=== PATIENT | female | born 1960 | race African-American/Black ===

== ENCOUNTER → 2019-01-21 | Outpatient (CLI) | payer BC ==
[2014-05-13 14:05] VITALS: BP 157/104
[~2019-01-21] MED LIST: LISI1TAB3 PO
--- NOTE | 2019-01-21 10:57 | RAD ---
DATE: 01/21/2019 EXAM: MAMMO SHEILA SCREENING BILATERAL HISTORY: Routine screening COMPARISON: 12/16/2014 This study was interpreted with the benefit of Computerized Aided Detection (CAD). Breast Density: SCATTERED The breast parenchyma shows scattered fibroglandular densities. Breast parenchyma level B. FINDINGS: 2-D and 3-D tomosynthesis imaging was performed in CC and MLO projections. The fibroglandular tissues are heterogeneous and somewhat nodular in character. No spiculated mass or architectural distortion is seen. There are scattered benign type calcifications. No suspicious microcalcifications have developed. IMPRESSION: There is no mammographic evidence of malignancy in either breast. BI-RADS CATEGORY: 2 BENIGN FINDING(S) RECOMMENDED FOLLOW-UP: 12M 12 MONTH FOLLOW-UP PQRS compliance statement: Patient information was entered into a reminder system with a target due date for the next mammogram. Mammography is a sensitive method for finding small breast cancers, but it does not detect them all and is not a substitute for careful clinical examination. A negative mammogram does not negate a clinically suspicious finding and should not result in delay in biopsying a clinically suspicious abnormality. "Our facility is accredited by the [employer] Mammography Program."
== END | disposition home or self-care (01) ==
LOC: MAMMO 09:51
PROVIDERS: ATTEND Internal Medicine
DX: Z12.31 Encounter for screening mammogram for malignant neoplasm of breast (principal)
CPT/HCPCS: 77063; 77067

== ENCOUNTER → 2019-10-28 | Outpatient (CLI) | payer BC ==
[2014-05-13 14:05] VITALS: BP 157/104
[~2019-10-28] MED LIST changes: +LISI1TAB23 PO; -LISI1TAB3 PO
--- NOTE | 2019-10-28 15:05 | RAD ---
EXAM: Bilateral knees, 3 views. HISTORY: Pain. COMPARISON: None. FINDINGS: 3 views of both knees are obtained. There is bilateral medial compartment joint space narrowing with subchondral sclerosis and marginal spurring. There is also mild bilateral lateral and patellofemoral compartment spurring. There is a trace left knee effusion. There is no fracture, dislocation or subluxation. There are few small bone islands. There is suspected left greater than right genu varus. IMPRESSION: 1. 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 2. No acute osseous finding. Electronically signed by: Zully Dickinson MD (10/28/2019 3:02 PM) [facility] [place]
--- NOTE | 2019-10-28 15:05 | RAD ---
EXAM: Bilateral knees, 3 views. HISTORY: Pain. COMPARISON: None. FINDINGS: 3 views of both knees are obtained. There is bilateral medial compartment joint space narrowing with subchondral sclerosis and marginal spurring. There is also mild bilateral lateral and patellofemoral compartment spurring. There is a trace left knee effusion. There is no fracture, dislocation or subluxation. There are few small bone islands. There is suspected left greater than right genu varus. IMPRESSION: 1. 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 2. No acute osseous finding. Electronically signed by: Zully Dickinson MD (10/28/2019 3:02 PM) [facility] [place]
== END | disposition home or self-care (01) ==
LOC: RAD 13:57
PROVIDERS: ATTEND Physical Medicine & Rehabilitation
DX: M17.0 Bilateral primary osteoarthritis of knee (principal)
CPT/HCPCS: 73562; 73565

== ENCOUNTER → 2021-03-13 | Outpatient (CLI) | payer BC ==
[2014-05-13 14:05] VITALS: BP 157/104
[2021-03-13 14:18] LABS: BASO % 1 % (0-3); EOS # 0.2 x10^3/uL (0.0-0.7); EOS % 4 % (0-3); HEMATOCRIT 38.9 % (36.0-47.0); HEMOGLOBIN 13.1 g/dL (12.0-15.5); LYMPH # 1.6 x10^3/uL (1.0-4.8); LYMPH % 34 % (24-48); MEAN CORPUSCULAR HEMOGLOBIN 30 pg (25-35); MEAN CORPUSCULAR HGB CONC 34 g/dL (31-37); MEAN CORPUSCULAR VOLUME 88 fL (79-100); MONO # 0.4 x10^3/uL (0.0-1.1); MONO % 9 % (0-9); NEUT # 2.6 x10^3/uL (1.8-7.7); NEUT % 53 % (31-73); PLATELET COUNT 237 x10^3/uL (140-400); RED CELL DISTRIBUTION WIDTH 14.1 % (11.5-14.5); WHITE BLOOD COUNT 4.8 x10^3/uL (4.0-11.0)
[2021-03-13 14:33] LABS: CALCIUM 9.8 mg/dL (8.5-10.1); CREATININE 1.3 mg/dL (0.6-1.0); GFR 50.2; POTASSIUM 3.9 mmol/L (3.5-5.1)
--- NOTE | 2021-03-13 17:50 | RAD ---
EXAM: Left second finger, 3 views. HISTORY: Left second proximal interphalangeal pain. COMPARISON: None. FINDINGS: There is marked soft tissue swelling about the second proximal interphalangeal joint. There are prominent osteophytes along the dorsal aspect of the second proximal phalangeal head. They are s mall elsewhere. No clear erosion or soft tissue calcification is seen. Elsewhere, a prominent osteophyte along the ulnar aspect of the third proximal interphalangeal joint may reflect a chronic ligamentous injury. Interphalangeal osteoarthritis is moderate at the first int erphalangeal joint and mild elsewhere. It is mild at the second, third and fifth metacarpophalangeal joints. IMPRESSION: 1. Soft tissue swelling superimposed on mild to moderate second proximal interphalangeal osteoarthrit is. Correlate to exclude infection or crystalline arthropathy. Electronically signed by: Yennifer Cedeño MD (03/13/2021 5:47 PM) [id number]
== END ==
LOC: RAD 13:39
PROVIDERS: ATTEND Physical Medicine & Rehabilitation
DX: M19.042 Primary osteoarthritis, left hand (principal); M77.8 Other enthesopathies, not elsewhere classified; M25.742 Osteophyte, left hand; M79.89 Other specified soft tissue disorders
CPT/HCPCS: 36415; 73140; 80048; 85025

== ENCOUNTER 2021-04-08 21:25 | Emergency (ER) | payer SELFPAY ==
[~2021-04-08] VITALS: Ht 167.6 cm; Wt 110.3 kg
--- NOTE | 2021-04-08 22:40 | PHYS DOC ---
Past Medical History Past Surgical History: No Surgical History General Adult EDM: Chief Complaint: MULTIPLE COMPLAINTS HPI: HPI: 60-year-old AA female past medical history of hypertension, presents to the ED with complaints of weakness for the past 2 days, subjective fevers, headache and multiple episodes of loose watery diarrhea. Sxs worsened after anglican this morning, does not believe she has been exposed to Covid. Was not vaccinated for Covid. Lives with daughter and younger children. Review of Systems: Review of Systems: Constitutional: Denies lack of taste or smell Eyes: Denies change in visual acuity. [] HENT: Denies nasal congestion or sore throat. [] Respiratory: Denies mopped assist or shortness of breath. [] Cardiovascular: Denies chest pain or edema. [] GI: Denies abdominal pain, nausea, vomiting, : Denies dysuria, hematuria Musculoskeletal: Denies back pain or joint pain. [] Integument: Denies rash or diaphoresis Neurologic: Denies neck stiffness, focal weakness or sensory changes. [] Endocrine: Denies polyuria or polydipsia. [] Lymphatic: Denies swollen glands. [] Psychiatric: Denies depression or anxiety. [] Heart Score: C/O Chest Pain: No Risk Factors: Risk Factors: DM, Current or recent (<one month) smoker, HTN, HLP, family history of CAD, obesity. Risk Scores: Score 0 - 3: 2.5% MACE over next 6 weeks - Discharge Home Score 4 - 6: 20.3% MACE over next 6 weeks - Admit for Clinical Observation Score 7 - 10: 72.7% MACE over next 6 weeks - Early Invasive Strategies Current Medications: Current Medications Medications (Trade) Dose Ordered Sig/Letitia Start Time Stop Time Status Last Admin Dose Admin Sodium Chloride 1,000 ml @ 1,000 mls/hr 1X ONCE 04/08/21 23:00 04/08/21 23:59 Allergies: Allergies: Allergies Coded Allergies Type Severity Reaction Last Updated Verified No Known Drug Allergies 05/13/14 No Physical Exam: PE: Constitutional: Well developed, well nourished, no acute distress, non-toxic appearance. HENT: Normocephalic, atraumatic, Eyes: EOMI, conjunctiva normal, no discharge. Neck: Normal range of motion, supple, Cardiovascular: S1/2 present, regular rhythm Lungs & Thorax: Speaking in full sentences, bilateral equal chest rise, no tachypnea or increased work of breathing Abdomen: soft, no tenderness, Skin: Warm, dry, no erythema, no rash. [] Back: No tenderness, no CVA tenderness. [] Extremities: No tenderness, no cyanosis, no lower extremity edema Neurologic: Alert and oriented X 3, normal motor function, normal sensory function, no focal deficits noted. [] Psychologic: Affect normal, judgement normal, mood normal. [] Current Patient Data: Vital Signs: Vital Signs Date Time Temp Pulse Resp B/P (MAP) Pulse Ox O2 Delivery O2 Flow Rate FiO2 04/08/21 21:35 98.7 118 18 106/83 (121) 96 Room Air 98.7 EKG: EKG: Sinus tachycardia 110 bpm, left axis deviation, normal intervals, T wave inversion in aVF, no ST elevations, no active chest pain 2353 sinus arrhtymia 100 pm, LAD, QTC 457, TWI V2, no ST elevations or ST depressions, no active chest pain Radiology/Procedures: Radiology/Procedures: IMAGING REPORT Signed PATIENT: GIOVANI DAVIS ACCOUNT: [id number] : 1960 LOCATION: ER AGE: 60 SEX: F EXAM STATUS: REG ER ORD. PHYSICIAN: FAIZAN DEXTER DO REASON: soa PROCEDURE: PORTABLE CHEST 1V PROCEDURE: XR CHEST 1V.04/08/2021 11:24 PM REASON FOR STUDY: Reason: soa / Spl. Instructions: / History: . COMPARISON: None. FINDINGS: No consolidation or pleural fluid is seen. There is mild haziness at the right base, and early infiltrate could be developing. Heart size is normal. IMPRESSION: Possible early right basilar infiltrate. Electronically signed by: Traa Marrero Jr., MD (04/08/2021 11:25 PM) [facility] DICTATED and SIGNED BY: TARA MARRERO Jr, MD DATE: 04/08/21 [id number] Course & Med Decision Making: Course & Med Decision Making Pertinent Labs and Imaging studies reviewed. (See chart for details) COVID-19 CRITERIA: The patient was evaluated during the global COVID-19 pandemic, and that diagnosis was suspected/considered upon their initial presentation. Their evaluation, treatment and testing was consistent with current guidelines for patients who present with complaints or symptoms that may be related to COVID-19. Concern for right sided pneumonia, rapid covid test negative. Symptoms more consistent with viral illness but will cover for bacterial and tx w/abx. Pt well appearing, in full sentences, requires no supplemental oxygen with no tachypnea. Pt is happy to be discharged home. Will discharge home with strict ED return precautions were given for difficulties or increased work of breathing, chest pain, fever, syncope or neurologic deficits. Encouraged urgent outpatient follow-up with PMD and [specialist]. Life-threatening processes were considered but are low suspicion at this time, given history, physical exam and ED workup. Pt was educated on all prescription medications and adverse effects. All patient's questions were answered and pt was stable at time of discharge. Life/limb-threatening differential includes but is not limited to, airway emergency or respiratory distress/ARDS or fatigue or head or neck swelling, toxidrome, sepsis/shock, angioedema, anaphylaxis, congestive heart failure, myocarditis, acute myocardial infarction, dysrhythmias, cardiomyopathy, venous thromboembolism, pulmonary emboli, acute necrotizing hemorrhagic encephalopathy ,cerebral venous thrombosis, meningitis, encephalitis or CVA. I have spoken with the patient and/or caregivers. I explained the patient's condition, diagnoses and treatment plan based on the information available to me at this time. I have answered the patient and/or caregiver's questions and addressed any concerns. The patient and/or caregivers have a good understanding of patient's diagnosis, condition and treatment plan as can be expected at this point. Vital signs have been stable. Patient's condition is stable and appropriate for discharge from the emergency department. Patient will pursue further outpatient evaluation with primary care physician or other designated or consulting physician as outlined in the discharge instructions. The patient and/or caregivers are agreeable to this plan of care and follow-up instructions have been explained in detail. The patient and/or caregivers have received these instructions in written form and have expressed an understanding of the discharge instructions. The patient and/or caregivers are aware that any significant change of condition or worsening of symptoms should prompt immediate return to this or the closest emergency department or call to 911. Marcos Disclaimer: Marcos Disclaimer: This electronic medical record was generated, in whole or in part, using a voice recognition dictation system. Departure Departure Impression: Primary Impression: Person under investigation for COVID-19 Additional Impression: Pneumonia involving right lung Disposition: HOME / SELF CARE / HOMELESS Condition: STABLE Referrals: LISA ANDERSEN MD (PCP) Follow-up with your primary care physician in 24 to 48 hours OR FOLLOW UP WITH FAMILY MEDICINE: [address] [place] [address] Patient Instructions: Pneumonia, Adult Additional Instructions: Return to ED immediately if your oxygen level drops below 90% (purchase a pulse oximetry at a medical supply store), difficulties breathing including rapid breathing or increased work of breathing (skin sucking under ribs), chest pain or stroke-like symptoms (facial droop, speech changes, arm/leg weakness). EMERGENCY DEPARTMENT GENERAL DISCHARGE INSTRUCTIONS Thank you for coming to [facility] Emergency Department (ED) today and trusting us with you care. We trust that you had a positive experience in our Emergency Department. If you wish to speak to the department management, you may call the Director at [phone]. YOUR FOLLOW UP INSTRUCTIONS ARE FOLLOWS: 1. Do you have a private Doctor? If you do not have a private doctor, please ask for a resource list of physicians or clinics that may be able to assist you with follow up care. 2. The Emergency Physicain has interpreted your x-rays. The X-Ray specialist will also review them. If there is a change in the findings, you will be notified in 48 hours when at all possible. 3. A lab test or culture has been done, your results will be reviewed and you will be notified if you need a change in treatment. ADDITIONAL INSTRUCTIONS AND INFORMATION: 1. Your care today has been supervised by a physician who is specially trained in emergency care. Many problems require more than one evaluation for a complete diagnosis and treatment. We recommend that you schedule your follow up appointment as recommended to ensure complete treatment of you illness or injury. If you are unable to obtain follow up care and continue to have a problem, or if your condition worsens, we recommend that you return to the ED. 2. We are not able to safely determine your condition over the phone nor are we able to give sound medical advice over the phone. For these safety reasons, if you call for medical advice we will ask you to come to the ED for further evaluation. 3. If you have any questions regarding these discharge instructions please call the ED at [phone]. SAFETY INFORMATION: In the interest of safety, wellness, and injury prevention; we encourage you to wear your sealbelt, if you smoke; quite smoking, and we encourage family to use a protective helmet for bicycling and other sporting events that present an increased risk for head injury. IF YOUR SYMPTOMS WORSEN OR NEW SYMPTOMS DEVELOP, OR YOU HAVE CONCERNS ABOUT YOUR CONDITION; OR IF YOUR CONDITION WORSENS WHILE YOU ARE WAITING FOR YOUR FOLLOW UP APPOINTMEN T; EITHER CONTACT YOUR PRIMARY CARE DOCTOR, THE PHYSICIAN WHOSE NAME AND NUMBER YOU WERE GIVEN, OR RETURN TO THE ED IMMEDIATELY. Scripts Azithromycin (ZITHROMAX) 250 Mg Tablet 250 MG PO as directed for ANTI-BIOTIC, #6 TAB 0 Refills Take 2 PO x 1 days Then take 1 PO q 24 hour for the next 4 days Prov: FAIZAN DEXTER DO 04/09/21 FAIZAN DEXTER DO Apr 08, 2021 22:40
[2021-04-08 22:48] LABS: BASO % 0 % (0-3); EOS # 0.1 x10^3/uL (0.0-0.7); EOS % 1 % (0-3); HEMATOCRIT 42.8 % (36.0-47.0); HEMOGLOBIN 14.7 g/dL (12.0-15.5); LYMPH # 0.8 x10^3/uL (1.0-4.8); LYMPH % 13 % (24-48); MEAN CORPUSCULAR HEMOGLOBIN 30 pg (25-35); MEAN CORPUSCULAR HGB CONC 34 g/dL (31-37); MEAN CORPUSCULAR VOLUME 88 fL (79-100); MONO # 0.5 x10^3/uL (0.0-1.1); MONO % 9 % (0-9); NEUT # 4.5 x10^3/uL (1.8-7.7); NEUT % 76 % (31-73); PLATELET COUNT 206 x10^3/uL (140-400); RED BLOOD COUNT 4.86 x10^6/uL (3.50-5.40); RED CELL DISTRIBUTION WIDTH 14.3 % (11.5-14.5); WHITE BLOOD COUNT 5.9 x10^3/uL (4.0-11.0)
[2021-04-08] MEDS ORDERED: IV NORMAL SALINE 1000ML BAG 1,000 ML IV ONE (23:00)
[2021-04-08 23:28] LABS: CALCIUM 9.4 mg/dL (8.5-10.1); CREATININE 1.6 mg/dL (0.6-1.0); GFR 39.5; POTASSIUM 3.4 mmol/L (3.5-5.1)
--- NOTE | 2021-04-08 23:28 | RAD ---
PROCEDURE: XR CHEST 1V.04/08/2021 11:24 PM REASON FOR STUDY: Reason: soa / Spl. Instructions: / History: . COMPARISON: None. FINDINGS: No consolidation or pleural fluid is seen. There is mild haziness at the right base, and ea rly infiltrate could be developing. Heart size is normal. IMPRESSION: Possible early right basilar infiltrate. Electronically signed by: Fady Marrero Jr., MD (04/08/2021 11:25 PM) [facility]
[2021-04-08 23:34] LABS: ALBUMIN 3.2 g/dL (3.4-5.0); ALBUMIN/GLOBULIN RATIO 0.7 (1.0-1.7); TOTAL BILIRUBIN 0.3 mg/dL (0.2-1.0); TOTAL PROTEIN 8.1 g/dL (6.4-8.2)
[2021-04-09] MEDS ORDERED: AZIT250T PO (00:41)
[2021-04-09 01:02] VITALS: BP 166/91
--- NOTE | 2021-04-09 01:12 | EKG ---
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
--- NOTE | 2021-04-09 01:14 | EKG ---
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
--- NOTE | 2021-04-09 16:55 | NUR ---
IP: Informed pt of negative covid test. Pt verbalized understanding.
== END 2021-04-09 01:09 | disposition home or self-care (01) ==
LOC: ER 21:25
DX: J18.9 Pneumonia, unspecified organism (principal); Z20.822 Contact with and (suspected) exposure to COVID-19; R51.9 Headache, unspecified; R19.7 Diarrhea, unspecified; I10 Essential (primary) hypertension
CPT/HCPCS: 36415; 71045; 80053; 83605; 83735; 83880; 84484; 85025; 87040; 87426; 93005; 96360; 99285; J7030; U0003; U0005

== ENCOUNTER → 2021-12-25 | Outpatient (CLI) | payer BC ==
[~2021-12-25] MED LIST changes: +AZIT250T PO; -LISI1TAB23 PO; +LISI1TAB35 PO
--- NOTE | 2021-12-25 16:21 | RAD ---
Bilateral digital screening 2-D and 3-D (digital breast tomosynthesis) mammogram: Reason for examination: Routine screening. Comparison: Mammograms from 01/21/2019 and 02/15/2015. Interpretation was made with the benefit of CAD. FINDINGS: Breast density: Category B. There are scattered areas of fibroglandular density. No suspicious breast mass, malignant appearing calcifications, or architectural distortion is seen. IMPRESSION: No evidence of malignancy. Assessment: BI-RADS 1. Negative. Recommendation: Routine screening mammograms. The patient will receive a letter with the results in the mail. Patient information will be entered i nto the mammography reminder system with a target recall date for the next mammogram. A reminder boone er will be generated. Electronically signed by: Delaney Washburn MD (12/25/2021 4:19 PM) [id number]
== END ==
LOC: MAMMO 09:02
PROVIDERS: ATTEND Internal Medicine
DX: Z12.31 Encounter for screening mammogram for malignant neoplasm of breast (principal)
CPT/HCPCS: 77063; 77067

== ENCOUNTER 2022-01-18 22:27 | Inpatient (IN) | payer BC ==
[~2022-01-18] VITALS: Ht 167.6 cm; Wt 112.0 kg
[2022-01-19] MEDS ORDERED: DEXAMETHASONE SOD PHOS 20 MG/5 ML VIAL. IV ONE
--- NOTE | 2022-01-19 00:04 | PHYS DOC ---
Past Medical History Past Surgical History: No Surgical History Smoking Status: Never Smoker Alcohol Use: None General Adult EDM: Chief Complaint: FOOT INJURY PAIN HPI: HPI: Patient is a 61 year old female who presents with callback from [place] where she was there she had a lot of seafood and then began having left ankle and foot swelling and pain with some tenderness to the top of the foot. She denies injury. She states she does have gout. She is not on her medication before. She also has arthritis and hypertension as a history. She states she was on her feet more than usual. Rates her pain a 10 out of 10. She states that her doctor gave her a 600 mg ibuprofen and it did not really help the pain. She states she does not want any narcotic pain medication. She is scheduled to have an upcoming left knee replacement this week. She denies numbness or tingling, skin color change, focal weakness, injury. Review of Systems: Review of Systems: Constitutional: Denies fever or chills. [] Eyes: Denies change in visual acuity. [] HENT: Denies nasal congestion or sore throat. [] Respiratory: Denies cough or shortness of breath. [] Cardiovascular: Denies chest pain or +Left foot and ankle edema. [] GI: Denies abdominal pain, nausea, vomiting, bloody stools or diarrhea. [] : Denies dysuria. [] Musculoskeletal: Denies back pain or +Left foot and ankle joint pain. [] Integument: Denies rash. [] Neurologic: Denies headache, focal weakness or sensory changes. [] Endocrine: Denies polyuria or polydipsia. [] Lymphatic: Denies swollen glands. [] Psychiatric: Denies depression or anxiety. [] Heart Score: C/O Chest Pain: No Current Medications: Current Medications Medications (Trade) Dose Ordered Sig/Letitia Start Time Stop Time Status Last Admin Dose Admin Dexamethasone Sodium Phosphate (Decadron) 10 mg 1X ONCE 01/19/22 00:00 01/19/22 00:01 Allergies: Allergies: Allergies Coded Allergies Type Severity Reaction Last Updated Verified No Known Drug Allergies 05/13/14 No Physical Exam: PE: Constitutional: Well developed, well nourished, no acute distress, non-toxic appearance. [] HENT: Normocephalic, atraumatic, bilateral external ears normal, oropharynx moist, no oral exudates, nose normal. [] Eyes: PERRLA, EOMI, conjunctiva normal, no discharge. [] Neck: Normal range of motion, no tenderness, supple, no stridor. [] Cardiovascular:Heart rate regular rhythm, no murmur [] Lungs & Thorax: Bilateral breath sounds clear to auscultation [] Abdomen: Bowel sounds normal, soft, no tenderness, no masses, no pulsatile masses. [] Skin: Warm, dry, no erythema, no rash. [] Back: No tenderness, no CVA tenderness. [] Extremities: Left dorsal foot tenderness, no cyanosis, no clubbing, left ankle ROM not intact, left foot and ankle 2+ edema. [] Neurologic: Alert and oriented X 3, normal motor function, normal sensory function, no focal deficits noted. [] Psychologic: Affect normal, judgement normal, mood normal. [] EKG: EKG: [] Radiology/Procedures: Radiology/Procedures: [] Course & Med Decision Making: Course & Med Decision Making Pertinent Labs and Imaging studies reviewed. (See chart for details) See HPI. Alert and oriented x4. Ambulatory but limping on the left foot. She states she cannot bear weight on that left foot and is very hard to walk. Range of motion is not intact due to swelling and pain. Speaks in full clear sentences. Slight tenderness to the dorsal foot. Pedal pulse strong present. Cap refill less than 2 seconds. Skin pink warm and dry. 0135: Patient's kidney function is elevated compared to in the past. We will give her 2 L of fluid in the ED. She is unable to walk on the left lower extremity due to pain and swelling. Her uric acid is 10.5. Dr. Berry did read the x-rays as no obvious acute findings but however gout and swelling. Dr. Berry to watch for ultrasound results. [] Dragon Disclaimer: Dragon Disclaimer: This electronic medical record was generated, in whole or in part, using a voice recognition dictation system. Departure Departure Impression: Primary Impression: SHEREEN (acute kidney injury) Additional Impressions: Gout attack Qualified Codes: M10.9 - Gout, unspecified Unable to ambulate Disposition: ADMITTED INPATIENT Admitting Physician: [facility] Condition: STABLE Referrals: LISA ANDERSEN MD (PCP) DOMENICO AQUINO APRN Jan 19, 2022 00:04
[2022-01-19 00:40] LABS: BASO % 1 % (0-3); EOS # 0.2 x10^3/uL (0.0-0.7); EOS % 4 % (0-3); HEMATOCRIT 38.1 % (36.0-47.0); HEMOGLOBIN 13.1 g/dL (12.0-15.5); LYMPH # 1.9 x10^3/uL (1.0-4.8); LYMPH % 26 % (24-48); MEAN CORPUSCULAR HEMOGLOBIN 30 pg (25-35); MEAN CORPUSCULAR HGB CONC 34 g/dL (31-37); MEAN CORPUSCULAR VOLUME 88 fL (79-100); MONO # 0.7 x10^3/uL (0.0-1.1); MONO % 10 % (0-9); NEUT # 4.3 x10^3/uL (1.8-7.7); NEUT % 60 % (31-73); PLATELET COUNT 204 x10^3/uL (140-400); RED BLOOD COUNT 4.33 x10^6/uL (3.50-5.40); RED CELL DISTRIBUTION WIDTH 14.1 % (11.5-14.5); WHITE BLOOD COUNT 7.2 x10^3/uL (4.0-11.0)
[2022-01-19 00:54] LABS: ALBUMIN 3.4 g/dL (3.4-5.0); ALBUMIN/GLOBULIN RATIO 0.7 (1.0-1.7); TOTAL PROTEIN 8.5 g/dL (6.4-8.2)
[2022-01-19 00:55] LABS: CALCIUM 9.9 mg/dL (8.5-10.1); GFR 30.4; POTASSIUM 3.2 mmol/L (3.5-5.1); TOTAL BILIRUBIN 0.2 mg/dL (0.2-1.0); URIC ACID 10.2 mg/dL (2.6-6.0)
[2022-01-19] MEDS ORDERED: IV NORMAL SALINE 1000ML BAG 1,000 ML IV ONE ×2 (01:15→01:45)
[2022-01-19 02:18] LABS: BACTERIA,URINE FEW /HPF (0-FEW); HYALINE CASTS, URINE OCCASIONAL /HPF; RBC,URINE 0 /HPF (0-2); WBC,URINE OCC /HPF (0-4)
--- NOTE | 2022-01-19 05:07 | RAD ---
STUDY: US DPLX VENOUS EXTREMITY LOWER LT INDICATION: Lower extremity pain and swelling. DVT. TECHNIQUE: Color-flow and pulsed wave duplex ultrasound with compression of venous structures of the left lower extremity. COMPARISON: None. FINDINGS: Duplex ultrasound with compression of the deep venous structures of the left lower extremity from the common femoral vein through the popliteal vein is negative for DVT. The posterior tibial and peroneal veins are segmentally visualized and patent where seen. Normal veno us waveforms and augmentation are noted throughout. IMPRESSION: No deep venous thrombosis identified throughout the left lower extremity. Electronically signed by: NICKY ALMAZAN MD (01/19/2022 5:04 AM) [facility]
--- NOTE | 2022-01-19 05:11 | RAD ---
Study: 1. XR EXAM OF ANKLE_LEFT 3V 2. XR FOOT_LEFT 3 VIEWS Indication: Pain and swelling. Comparison: None. Findings: Left ankle: Edematous soft tissues around the ankle. Chronic osseous proliferation at the tip of the medial malle olus. No acute malleolar fracture. Mild degenerative spurring along the tibial plafond. Ankle joint s pace height is maintained. Symmetric ankle mortise. Left foot: Plantar calcaneal spur. Osteophytic ridging at the dorsum of the midfoot. Minimal great toe MTP joint arthrosis and a tiny chronic focus of mineralization adjacent to the first metatarsal head. No acute fracture, focal erosion or periostitis. Nonspecific edematous appearance of the soft tissues mainly at the dorsum of the foot. Impression: Left ankle and left foot: 1. Nonspecific edematous soft tissues such as at the ankle and dorsum of the foot. No fracture or mal alignment. 2. Scattered chronic/degenerative findings as discussed above. Electronically signed by: NICKY ALMAZAN MD (01/19/2022 5:09 AM) [facility]
[2022-01-19 07:00] VITALS: BP 140/69
[2022-01-19] MEDS ORDERED: HYDR-2761 PO (08:30)
[2022-01-19] MEDS ORDERED: TRIA1TAB5 PO (08:30)
[2022-01-19] MEDS ORDERED: AMLO-186 PO (08:30)
--- NOTE | 2022-01-19 08:44 | PDOC ---
Provider Note Date of Service: DATE: 01/19/22 TIME: 08:44 Provider Note Pt seen.H&P dictated,#[id number]. Justifications for Admission Other Justification LISA ANDERSEN MD Jan 19, 2022 08:44
[2022-01-19] MEDS ORDERED: predniSONE 20 MG TABLET PO ONE (08:45)
[2022-01-19] MEDS ORDERED: POTASSIUM CHLORIDE 20 MEQ TABLET.ER. PO ONE ×2 (08:45→12:45)
[2022-01-19] MEDS ORDERED: HYDROcodone/APAP 10/325 1 TAB TABLET PO PRN (08:45)
[2022-01-19] MEDS: COLCHICINE 0.6 MG TABLET PO SCH ×2 (10:05→21:25)
[2022-01-19] MEDS: IV NORMAL SALINE 1000ML BAG 1,000 ML IV SCH ×2 (10:06→16:06)
[2022-01-19 11:00] VITALS: BP 142/92
--- NOTE | 2022-01-19 12:41 | PDOC2 ---
CONSULT Date of Consult Date of Consult DATE: 01/19/22 TIME: 12:30 Reason for Consult Reason for Consult: SHEREEN Identification/Chief Complaint Chief Complaint Lt foot swelling Source Source: Chart review History of Present Illness Reason for Visit: Patient is a 61 year old AA female came to the ER with C/o swelling in her left foot. States she was in [place] for last 3 day and had a lot of seafood . She noticed having left ankle and foot swelling and pain with some tenderness to the top of the foot. She denies injury. She denies Dx of gout . She has history of HTN.States BP are high only since she has gained weight, denies any acute weight gain. Denies any SOB or CP, No N/VD . Denies F/C. Denies regular use of NSAID's, her doctor gave her a 600 mg ibuprofen , took 1 tab and it did not really help the pain. . States Dr Santiago addeda new BP med approx 3 weeks back- starts with A, thinks Amlodipine sounds right . Denies Diuretics . No Other supplements. No Hx of Kidney Stones. Never been told that she has CKD or any other Kidney issues. No DM, CAD or Arrythmias She is scheduled to have an upcoming left knee replacement this week. Strong FHX of CKD/ESRD- Mother and father - states dies of kidney failure .Sister and Brother were on Dialysis but they quit Current Problem List Problem List Problems Medical Problems: (1) SHEREEN (acute kidney injury) Status: Acute (2) Gout attack Status: Acute (3) Unable to ambulate Status: Acute Current Medications Current Medications Current Medications Dexamethasone Sodium Phosphate (Decadron) 10 mg 1X ONCE IV Last administered on 01/19/22at 00:38; Start 01/19/22 at 00:00; Stop 01/19/22 at 00:01; Status DC Sodium Chloride 1,000 ml @ 1,000 mls/hr 1X ONCE IV Last administered on 01/19/22at 01:26; Start 01/19/22 at 01:15; Stop 01/19/22 at 02:14; Status DC Sodium Chloride 1,000 ml @ 1,000 mls/hr 1X ONCE IV Last administered on 01/19/22at 02:41; Start 01/19/22 at 01:45; Stop 01/19/22 at 02:44; Status DC Prednisone (Prednisone) 60 mg 1X ONCE PO Last administered on 01/19/22at 10:05; Start 01/19/22 at 08:45; Stop 01/19/22 at 08:52; Status DC Prednisone (Prednisone) 50 mg 1X ONCE PO ; Start 01/20/22 at 09:00; Stop 01/20/22 at 09:01 Prednisone (Prednisone) 30 mg 1X ONCE PO ; Start 01/21/22 at 09:00; Stop 01/21/22 at 09:01 Colchicine (Colcrys) 0.6 mg BID PO Last administered on 01/19/22at 10:05; Start 01/19/22 at 09:00 Acetaminophen/ Hydrocodone Bitart (Lortab 10/325) 1 tab PRN Q6HRS PRN PO PAIN; Start 01/19/22 at 08:45 Amlodipine Besylate (Norvasc) 5 mg DAILY PO Last administered on 01/19/22at 10:05; Start 01/19/22 at 09:00 Potassium Chloride (Klor-Con) 40 meq 1X ONCE PO Last administered on 01/19/22at 10:06; Start 01/19/22 at 08:45; Stop 01/19/22 at 08:52; Status DC Potassium Chloride (Klor-Con) 20 meq 1X ONCE PO Last administered on 01/19/22at 12:07; Start 01/19/22 at 12:45; Stop 01/19/22 at 12:46 Sodium Chloride 1,000 ml @ 100 mls/hr Q10H IV Last administered on 01/19/22at 10:06; Start 01/19/22 at 08:45 Active Scripts Active Reported Hydrocodone-Apap 5-325 (Hydrocodone Bit/Acetaminophen) 1 Tab Tablet 1 Tab PO PRN Q6HRS PRN Amlodipine Besylate 5 Mg Tablet 5 Mg PO DAILY Triamterene-Hctz 75-50 Mg Tab (Triamterene/Hydrochlorothiazid) 1 Each Tablet 1 Tab PO DAILY Allergies Allergies: Coded Allergies: No Known Drug Allergies (Unverified , 05/13/14) ROS Review of System As per HPI, rest of the ROS is negative Physical Exam Physical Exam General - NAD HEEN OM moist neck supple Lungs CTA , Non labored CV S1S2 Abd Soft, NT, BS + Ext Lt LE edema trace, Swelling Lt foot No owusu, No CVA or SP tenderness Neuro Grossly normal Psych Cooperative Vital Signs Vital Signs Date Time Temp Pulse Resp B/P (MAP) Pulse Ox O2 Delivery O2 Flow Rate FiO2 01/19/22 11:00 98.1 98 16 142/92 (109) 97 Room Air 98.1 Assessment & Plan SHEREEN - Vs Progression of CKD , No interval labs available. FU labs tomorrow. Continue IVF. UA unremarkable, Check Renal US. Avoid Nephrotoxins, maintain Hydration , strict I/O ? CKD - Creat 1.3-->1.6 February--> March 2021 with eGFR cw CKD 3A /3B per [facility] records . per patient Dr Santiago told her Cr was 1.0 in the past HypoKalemia K mildly low last night , replace. No labs this am HTN - Home meds are HCTZ/TRiam (Not sure of the duration)- Held currently. Amlodipine - since 3 weeks per patient . If Gout ruled out Amlodiopine and monitor for improvement in swelling ? Gout- Uric acid elevated. primary managing Labs Labs Laboratory Tests Test 01/18/22 23:55 01/19/22 00:01 01/19/22 01:25 White Blood Count 7.2 x10^3/uL (4.0-11.0) Red Blood Count 4.33 x10^6/uL (3.50-5.40) Hemoglobin 13.1 g/dL (12.0-15.5) Hematocrit 38.1 % (36.0-47.0) Mean Corpuscular Volume 88 fL (79-100) Mean Corpuscular Hemoglobin 30 pg (25-35) Mean Corpuscular Hemoglobin Concent 34 g/dL (31-37) Red Cell Distribution Width 14.1 % (11.5-14.5) Platelet Count 204 x10^3/uL (140-400) Neutrophils (%) (Auto) 60 % (31-73) Lymphocytes (%) (Auto) 26 % (24-48) Monocytes (%) (Auto) 10 % (0-9) Eosinophils (%) (Auto) 4 % (0-3) Basophils (%) (Auto) 1 % (0-3) Neutrophils # (Auto) 4.3 x10^3/uL (1.8-7.7) Lymphocytes # (Auto) 1.9 x10^3/uL (1.0-4.8) Monocytes # (Auto) 0.7 x10^3/uL (0.0-1.1) Eosinophils # (Auto) 0.2 x10^3/uL (0.0-0.7) Basophils # (Auto) 0.0 x10^3/uL (0.0-0.2) Erythrocyte Sedimentation Rate 60 (0-25) Sodium Level 143 mmol/L (136-145) Potassium Level 3.2 mmol/L (3.5-5.1) Chloride Level 107 mmol/L (98-107) Carbon Dioxide Level 29 mmol/L (21-32) Anion Gap 7 (6-14) Blood Urea Nitrogen 41 mg/dL (7-20) Creatinine 2.0 mg/dL (0.6-1.0) Estimated GFR (Cockcroft-Gault) 30.4 BUN/Creatinine Ratio 21 (6-20) Glucose Level 129 mg/dL (70-99) Uric Acid 10.2 mg/dL (2.6-6.0) Calcium Level 9.9 mg/dL (8.5-10.1) Total Bilirubin 0.2 mg/dL (0.2-1.0) Aspartate Amino Transf (AST/SGOT) 15 U/L (15-37) Alanine Aminotransferase (ALT/SGPT) 26 U/L (14-59) Alkaline Phosphatase 89 U/L (46-116) C-Reactive Protein, Quantitative 6.0 mg/L (0-3.3) JI-Azy-Z-Type Natriuretic Peptide 23 pg/mL (0-124) Total Protein 8.5 g/dL (6.4-8.2) Albumin 3.4 g/dL (3.4-5.0) Albumin/Globulin Ratio 0.7 (1.0-1.7) Magnesium Level 2.0 mg/dL (1.8-2.4) Urine Collection Type Unknown Urine Color (Auto) Colorless Urine Turbidity Clear Urine pH (Auto) 5.0 (<5.0-8.0) Urine Specific Davison 1.012 (1.000-1.030) Urine Protein (Auto) Negative mg/dL (Negative) Urine Glucose (Auto)(UA) Negative mg/dL (Negative) Urine Ketones (Auto) Negative mg/dL (Negative) Urine Blood (Auto) Negative (Negative) Urine Nitrite Negative (Negative) Urine Bilirubin (Auto) Negative (Negative) Urine Urobilinogen (Auto) Normal mg/dL (Normal) Urine Leukocyte Esterase (Auto) Negative (Negative) Urine RBC 0 /HPF (0-2) Urine WBC Occ /HPF (0-4) Urine Squamous Epithelial Cells Few /LPF Urine Bacteria Few /HPF (0-FEW) Urine Hyaline Casts Occasional /HPF Urine Mucus Slight /LPF Laboratory Tests Test 01/18/22 23:55 01/19/22 00:01 01/19/22 01:25 White Blood Count 7.2 x10^3/uL (4.0-11.0) Red Blood Count 4.33 x10^6/uL (3.50-5.40) Hemoglobin 13.1 g/dL (12.0-15.5) Hematocrit 38.1 % (36.0-47.0) Mean Corpuscular Volume 88 fL (79-100) Mean Corpuscular Hemoglobin 30 pg (25-35) Mean Corpuscular Hemoglobin Concent 34 g/dL (31-37) Red Cell Distribution Width 14.1 % (11.5-14.5) Platelet Count 204 x10^3/uL (140-400) Neutrophils (%) (Auto) 60 % (31-73) Lymphocytes (%) (Auto) 26 % (24-48) Monocytes (%) (Auto) 10 % (0-9) Eosinophils (%) (Auto) 4 % (0-3) Basophils (%) (Auto) 1 % (0-3) Neutrophils # (Auto) 4.3 x10^3/uL (1.8-7.7) Lymphocytes # (Auto) 1.9 x10^3/uL (1.0-4.8) Monocytes # (Auto) 0.7 x10^3/uL (0.0-1.1) Eosinophils # (Auto) 0.2 x10^3/uL (0.0-0.7) Basophils # (Auto) 0.0 x10^3/uL (0.0-0.2) Erythrocyte Sedimentation Rate 60 (0-25) Sodium Level 143 mmol/L (136-145) Potassium Level 3.2 mmol/L (3.5-5.1) Chloride Level 107 mmol/L (98-107) Carbon Dioxide Level 29 mmol/L (21-32) Anion Gap 7 (6-14) Blood Urea Nitrogen 41 mg/dL (7-20) Creatinine 2.0 mg/dL (0.6-1.0) Estimated GFR (Cockcroft-Gault) 30.4 BUN/Creatinine Ratio 21 (6-20) Glucose Level 129 mg/dL (70-99) Uric Acid 10.2 mg/dL (2.6-6.0) Calcium Level 9.9 mg/dL (8.5-10.1) Total Bilirubin 0.2 mg/dL (0.2-1.0) Aspartate Amino Transf (AST/SGOT) 15 U/L (15-37) Alanine Aminotransferase (ALT/SGPT) 26 U/L (14-59) Alkaline Phosphatase 89 U/L (46-116) C-Reactive Protein, Quantitative 6.0 mg/L (0-3.3) EL-Efp-D-Type Natriuretic Peptide 23 pg/mL (0-124) Total Protein 8.5 g/dL (6.4-8.2) Albumin 3.4 g/dL (3.4-5.0) Albumin/Globulin Ratio 0.7 (1.0-1.7) Magnesium Level 2.0 mg/dL (1.8-2.4) Urine Collection Type Unknown Urine Color (Auto) Colorless Urine Turbidity Clear Urine pH (Auto) 5.0 (<5.0-8.0) Urine Specific Davison 1.012 (1.000-1.030) Urine Protein (Auto) Negative mg/dL (Negative) Urine Glucose (Auto)(UA) Negative mg/dL (Negative) Urine Ketones (Auto) Negative mg/dL (Negative) Urine Blood (Auto) Negative (Negative) Urine Nitrite Negative (Negative) Urine Bilirubin (Auto) Negative (Negative) Urine Urobilinogen (Auto) Normal mg/dL (Normal) Urine Leukocyte Esterase (Auto) Negative (Negative) Urine RBC 0 /HPF (0-2) Urine WBC Occ /HPF (0-4) Urine Squamous Epithelial Cells Few /LPF Urine Bacteria Few /HPF (0-FEW) Urine Hyaline Casts Occasional /HPF Urine Mucus Slight /LPF Review All relevant outside records, renal labs, imaging studies, telemetry/EKG's were reviewed. Images Images Edematous soft tissues around the ankle. Chronic osseous proliferation at the tip of the medial malleolus. No acute malleolar fracture. Mild degenerative spurring along the tibial plafond. Ankle joint space height is maintained. Symmetric ankle mortise. Left foot: Plantar calcaneal spur. Osteophytic ridging at the dorsum of the midfoot. Minimal great toe MTP joint arthrosis and a tiny chronic focus of mineralization adjacent to the first metatarsal head. No acute fracture, focal erosion or periostitis. Nonspecific edematous appearance of the soft tissues mainly at the dorsum of the foot. Impression: Left ankle and left foot: 1. Nonspecific edematous soft tissues such as at the ankle and dorsum of the foot. No fracture or malalignment. 2. Scattered chronic/degenerative findings as discussed above. GAURANG CALDERÓN MD Jan 19, 2022 12:41
[2022-01-19 15:00] VITALS: BP 134/93
[2022-01-19 19:30] VITALS: BP 138/93
[2022-01-19 22:56] VITALS: BP 147/91
[2022-01-20 03:32] VITALS: BP 125/89
[2022-01-20] MEDS: IV NORMAL SALINE 1000ML BAG 1,000 ML IV SCH ×2 (04:31→13:59)
[2022-01-20 06:53] VITALS: BP 142/88
[2022-01-20 08:18] LABS: CALCIUM 9.1 mg/dL (8.5-10.1); CREATININE 1.4 mg/dL (0.6-1.0); POTASSIUM 3.7 mmol/L (3.5-5.1)
--- NOTE | 2022-01-20 08:22 | HP ---
DATE OF SERVICE: 01/19/2022 ADMIT DATE: 01/19/2022 REASON FOR ADMISSION TO THE HOSPITAL: Gout attack, left foot and ankle pain. HISTORY OF PRESENT ILLNESS: The patient is a 61-year-old female with history of hypertension, obesity, and she was supposed to get a left knee replacement at next week and the patient says she has been on a road trip to [place] and she was on the way back a couple of days ago, stopped at a restaurant, had a lot of red meat and oily food and then after she came, she had noticed some pain in the left foot and the leg, not able to ambulate, came to the Emergency Room. Doppler was negative. X-ray, no fracture. The patient has redness and tender in the left foot and ankle. Uric acid was high at 10, creatinine went up to 2, the patient was admitted to the hospital for acute gout episode. The patient was given IV dexamethasone, colchicine and also Renal was consulted because of the kidney problem. PAST MEDICAL HISTORY: Has a history of hypertension, arthritis, obesity. PAST SURGICAL HISTORY: Denies any major surgeries. ALLERGIES: No known allergies. MEDICATIONS AT HOME: The patient is on hydrocodone for pain, Dyazide for blood pressure, amlodipine 5 mg daily. PERSONAL HISTORY: Denies smoking, alcohol, drug abuse. FAMILY HISTORY: Positive for hypertension, diabetes. REVIEW OF SYSTEMS: Complains of severe pain of foot and ankle. Rest of the systems negative. PHYSICAL EXAMINATION: GENERAL: She is a female, not in any distress. VITAL SIGNS: Shows temperature 98, pulse 93, respirations 20, blood pressure 150/80, 97 on room air. HEENT: Head is atraumatic. Pupils equal. Oral cavity, no congestion. NECK: Supple. Thyroid not enlarged. JVD not elevated. CHEST: Symmetrical. CARDIOVASCULAR: S1, S2. LUNGS: Clear to auscultation. ABDOMEN: Soft. No mass palpable. EXTERNAL GENITALIA: No Cai. RECTUM: Deferred. EXTREMITIES: The patient has swelling, redness and tenderness in the dorsals of the left foot and ankle and the patient has DJD of the knee, no calf tenderness No focal deficits noted. LABORATORY DATA: Shows a white count of 7, hemoglobin 13, platelets 204. Sed rate 60, high. Electrolytes show sodium 143, potassium 3.2, chloride 107, bicarb 29, BUN 41, creatinine 2.0, magnesium 2.0. LFTs normal. Urine negative. Ultrasound of the leg is negative for DVT. X-ray of the foot, no fracture. FINAL IMPRESSION: 1. Acute gout attack of left foot and ankle. 2. Acute kidney failure. 3. Hyperuricemia. 4. Hypertension. 5. Obesity. 6. Osteoarthritis of the knee. PLAN: At this time, the patient was admitted to the hospital. The patient was on Dyazide, we stopped the Dyazide. IV fluids for hydration. See if the kidneys improve, Renal consult and also the patient was given dexamethasone, colchicine for acute gout flareup, and codeine for pain and see how she does. We will do an ultrasound of the kidneys. NASIMA/ANNE/ARTURO DR: NASIMA/enoch TID: [id number] MTDD
[2022-01-20] MEDS: COLCHICINE 0.6 MG TABLET PO SCH ×2 (08:29→21:19)
[2022-01-20] MEDS ORDERED: predniSONE 10 MG TABLET PO ONE (09:00)
--- NOTE | 2022-01-20 09:18 | PDOC ---
IM PROGRESS NOTES- Subjective Subjective Left foot Pain and swelling is improving. Objective Vitals/I&O Vital Signs Date Time Temp Pulse Resp B/P (MAP) Pulse Ox O2 Delivery O2 Flow Rate FiO2 01/20/22 08:30 95 142/88 01/20/22 07:48 Room Air 01/20/22 06:53 97.7 18 95 97.7 I & O 01/19/22 01/19/22 01/20/22 15:00 23:00 07:00 Intake Total 270 ml 1500 ml Balance 270 ml 1500 ml Physical Exam Physical Exam General Appearance - alert and in no distress Chest - decreased breath sounds at bases Heart - S1 and S2 normal Abdomen - soft, non tender Neurological - alert and oriented Musculoskeletal - generalized weakness Extremities - + edema, swelling of the left foot is improving. Labs Laboratory Tests Test 01/20/22 06:50 Sodium Level 142 mmol/L (136-145) Potassium Level 3.7 mmol/L (3.5-5.1) Chloride Level 109 mmol/L (98-107) H Carbon Dioxide Level 25 mmol/L (21-32) Anion Gap 8 (6-14) Blood Urea Nitrogen 28 mg/dL (7-20) H Creatinine 1.4 mg/dL (0.6-1.0) H Estimated GFR (Cockcroft-Gault) 46.0 Glucose Level 193 mg/dL (70-99) H Calcium Level 9.1 mg/dL (8.5-10.1) Laboratory Tests 01/20/22 06:50 Meds Current Medications Medications (Trade) Dose Ordered Sig/Letitia Route PRN Reason Start Time Stop Time Status Last Admin Dose Admin Prednisone (Prednisone) 50 mg 1X ONCE PO 01/20/22 09:00 01/20/22 09:01 DC 01/20/22 08:30 Potassium Chloride (Klor-Con) 20 meq 1X ONCE PO 01/19/22 12:45 01/19/22 12:46 DC 01/19/22 12:07 Assessment Assessment 1. Acute gout attack of left foot and ankle. 2. Acute kidney failure. 3. Hyperuricemia. 4. Hypertension. 5. Obesity. 6. Osteoarthritis of the knee. PLAN: At this time, the patient was admitted to the hospital. The patient was on Dyazide, we stopped the Dyazide. IV fluids for hydration. See if the kidneys improve, Renal consult and also the patient was given dexamethasone, colchicine for acute gout flareup, and codeine for pain . SHEREEN improving. Creat 1.4. IV fluids.Renal sono pending Hypokalemia improving. She is scheduled for left TKA at [facility] on Friday. If stable, discharge tomorrow. Plan Plan For more details regarding further plans, please refer to the orders. Justifications for Admission Other Justification LEIGH ANN CHAVES MD January 20, 2022 09:18
[2022-01-20 11:00] VITALS: BP 153/99
--- NOTE | 2022-01-20 11:59 | PDOC ---
DATE OF SERVICE DATE: 01/20/22 TIME: 11:57 SUBJECTIVE ROS Lt foot pain and swelling better. No Other complaints . OBJECTIVE Vital Signs Vital Signs Date Time Temp Pulse Resp B/P (MAP) Pulse Ox O2 Delivery O2 Flow Rate FiO2 01/20/22 11:00 98.1 89 16 153/99 (117) 96 Room Air 98.1 I & 0 Intake and Output 01/20/22 07:00 Intake Total 1770 ml Balance 1770 ml Intake Oral 770 ml IV Total 1000 ml # Voids 2 PHYSICAL EXAM Physical Exam General - NAD HEEN OM moist neck supple Lungs CTA , Non labored CV S1S2 Abd Soft, NT, BS + Ext Lt LE edema trace, Swelling Lt foot No owusu, No CVA or SP tenderness Neuro Grossly normal Psych Cooperative DIAGNOSIS/ASSESSMENT Assessment & Plan SHEREEN - Vs Progression of CKD , Cr trending down . UA unremarkable, Renal US pending . Avoid Nephrotoxins, maintain Hydration , strict I/O ? CKD - Creat 1.3-->1.6 February--> March 2021 with eGFR cw CKD 3A /3B per [facility] records .No Interval or prior labs available per patient Dr Santiago told her Cr was 1.0 in the past HypoKalemia K mildly low last night , replace. No labs this am HTN - Home meds are HCTZ/TRiam (Not sure of the duration)- Held currently. Amlodipine - since 3 weeks per patient Gout- Uric acid elevated. primary managing COMMENT/RELEVANT DATA Meds Current Medications Medications (Trade) Dose Ordered Sig/Letitia Start Time Stop Time Status Last Admin Dose Admin Acetaminophen/ Hydrocodone Bitart (Lortab 10/325) 1 tab PRN Q6HRS PRN 01/19/22 08:45 Amlodipine Besylate (Norvasc) 5 mg DAILY 01/19/22 09:00 01/20/22 08:30 5 MG Colchicine (Colcrys) 0.6 mg BID 01/19/22 09:00 01/20/22 08:29 0.6 MG Dexamethasone Sodium Phosphate (Decadron) 10 mg 1X ONCE 01/19/22 00:00 01/19/22 00:01 DC 01/19/22 00:38 10 MG Potassium Chloride (Klor-Con) 20 meq 1X ONCE 01/19/22 12:45 01/19/22 12:46 DC 01/19/22 12:07 20 MEQ Prednisone (Prednisone) 30 mg 1X ONCE 01/21/22 09:00 01/21/22 09:01 Sodium Chloride 1,000 ml @ 100 mls/hr Q10H 01/19/22 08:45 01/20/22 04:31 100 MLS/HR Lab Laboratory Tests Test 01/20/22 06:50 Sodium Level 142 mmol/L (136-145) Potassium Level 3.7 mmol/L (3.5-5.1) Chloride Level 109 mmol/L (98-107) Carbon Dioxide Level 25 mmol/L (21-32) Anion Gap 8 (6-14) Blood Urea Nitrogen 28 mg/dL (7-20) Creatinine 1.4 mg/dL (0.6-1.0) Estimated GFR (Cockcroft-Gault) 46.0 Glucose Level 193 mg/dL (70-99) Calcium Level 9.1 mg/dL (8.5-10.1) Results All relevant outside records, renal labs, imaging studies, telemetry/EKG's were reviewed. Justicifation of Admission Dx: Justifications for Admission: Justification of Admission Dx: N/A GAURANG CALDERÓN MD January 20, 2022 11:59
[2022-01-20 15:00] VITALS: BP 163/90
[2022-01-20 19:00] VITALS: BP 148/91
[2022-01-20 23:00] VITALS: BP 148/93
[2022-01-21] MEDS: IV NORMAL SALINE 1000ML BAG 1,000 ML IV SCH (00:06)
[2022-01-21 03:00] VITALS: BP 133/81
[2022-01-21 06:03] LABS: CALCIUM 8.7 mg/dL (8.5-10.1); GFR 67.8; POTASSIUM 3.6 mmol/L (3.5-5.1)
--- NOTE | 2022-01-21 06:09 | RAD ---
INDICATION: Reason: SHEREEN on ? CKD / Spl. Instructions: / History: COMPARISON: None. TECHNIQUE: Grayscale and color ultrasound images obtained of the bilateral kidneys and bladder. FINDINGS: Right Kidney: 110 mm. Left Kidney: 108 mm. Incidental note of echogenic liver which can be seen with fatty infiltration. No hydronephrosis bilaterally. Bladder: Well-distended. IMPRESSION: * No hydronephrosis bilaterally. Electronically signed by: Levar Lea MD (01/21/2022 6:06 AM) [id number]
[2022-01-21 07:00] VITALS: BP 143/87
[2022-01-21] MEDS: COLCHICINE 0.6 MG TABLET PO SCH (08:14)
[2022-01-21] MEDS ORDERED: predniSONE 10 MG TABLET PO ONE (09:00)
--- NOTE | 2022-01-21 09:01 | PDOC ---
DATE OF SERVICE DATE: 01/21/22 TIME: 08:58 SUBJECTIVE ROS No complaints . OBJECTIVE Vital Signs Vital Signs Date Time Temp Pulse Resp B/P (MAP) Pulse Ox O2 Delivery O2 Flow Rate FiO2 01/21/22 08:15 82 143/87 01/21/22 07:00 97.4 14 98 Room Air 97.4 I & 0 Intake and Output 01/21/22 07:00 Intake Total 1350 ml Balance 1350 ml Intake Oral 1350 ml # Voids 3 PHYSICAL EXAM Physical Exam General - NAD HEEN OM moist neck supple Lungs CTA , Non labored CV S1S2 Abd Soft, NT, BS + Ext Lt LE edema trace, Swelling Lt foot No owusu, No CVA or SP tenderness Neuro Grossly normal Psych Cooperative DIAGNOSIS/ASSESSMENT Assessment & Plan SHEREEN - Vs Progression of CKD ,Resolved . UA unremarkable, Renal US normal . Avoid Nephrotoxins, maintain Hydration , ? CKD - Creat 1.3-->1.6 February--> March 2021 with eGFR cw CKD 3A /3Bper [facility] records ; Currently down to 1.0 . No Interval or prior labs available HypoKalemia Resolved HTN - Home meds are HCTZ/TRiam Held and Amlodipine Gout- Uric acid elevated. Echogenic liver which can be seen with fatty infiltration on US Scheduled for TKR at [facility] on Fri COMMENT/RELEVANT DATA Meds Current Medications Medications (Trade) Dose Ordered Sig/Letitia Start Time Stop Time Status Last Admin Dose Admin Acetaminophen/ Hydrocodone Bitart (Lortab 10/325) 1 tab PRN Q6HRS PRN 01/19/22 08:45 Amlodipine Besylate (Norvasc) 5 mg DAILY 01/19/22 09:00 01/21/22 08:15 5 MG Colchicine (Colcrys) 0.6 mg BID 01/19/22 09:00 01/21/22 08:14 0.6 MG Dexamethasone Sodium Phosphate (Decadron) 10 mg 1X ONCE 01/19/22 00:00 01/19/22 00:01 DC 01/19/22 00:38 10 MG Potassium Chloride (Klor-Con) 20 meq 1X ONCE 01/19/22 12:45 01/19/22 12:46 DC 01/19/22 12:07 20 MEQ Prednisone (Prednisone) 30 mg 1X ONCE 01/21/22 09:00 01/21/22 09:01 01/21/22 08:14 30 MG Sodium Chloride 1,000 ml @ 100 mls/hr Q10H 01/19/22 08:45 01/21/22 00:06 100 MLS/HR Lab Laboratory Tests Test 01/21/22 04:30 Sodium Level 144 mmol/L (136-145) Potassium Level 3.6 mmol/L (3.5-5.1) Chloride Level 112 mmol/L (98-107) Carbon Dioxide Level 23 mmol/L (21-32) Anion Gap 9 (6-14) Blood Urea Nitrogen 21 mg/dL (7-20) Creatinine 1.0 mg/dL (0.6-1.0) Estimated GFR (Cockcroft-Gault) 67.8 Glucose Level 93 mg/dL (70-99) Calcium Level 8.7 mg/dL (8.5-10.1) Results All relevant outside records, renal labs, imaging studies, telemetry/EKG's were reviewed. Justicifation of Admission Dx: Justifications for Admission: Justification of Admission Dx: N/A GAURANG CALDERÓN MD January 21, 2022 09:01
--- NOTE | 2022-01-21 09:17 | PDOC ---
PROGRESS NOTES Date of Service: DATE: 01/21/22 TIME: 09:15 Subjective Subjective doing well ,no foot pain Objective Objective Vital Signs Date Time Temp Pulse Resp B/P (MAP) Pulse Ox O2 Delivery O2 Flow Rate FiO2 01/21/22 08:15 82 143/87 01/21/22 07:00 97.4 14 98 Room Air 97.4 Intake and Output 01/21/22 07:00 Intake Total 1350 ml Balance 1350 ml Intake Oral 1350 ml # Voids 3 Physical Exam Abdomen: Soft Heart: Normal S1, Normal S2 Extremities: No clubbing General: Alert HEENT: Atraumatic Lungs: Clear to auscultation MUSCULOSKELETAL: No joint tenderness Neck: No JVD Neuro: Normal gait Psych/Mental Status: Mental status NL Skin: No breakdown Diagnosis Problem List Problems Medical Problems: (1) SHEREEN (acute kidney injury) Status: Acute (2) Gout attack Status: Acute (3) Unable to ambulate Status: Acute Assessment Assessment 1. Acute gout attack of left foot and ankle. 2. Acute kidney failure. 3. Hyperuricemia. 4. Hypertension. 5. Obesity. 6. Osteoarthritis of the knee. PLAN: kidney function back to normal Cr 1.0 sono kidneys -ve d/c home today . stop dyazide . At this time, the patient was admitted to the hospital. The patient was on Dyazide, we stopped the Dyazide. IV fluids for hydration. See if the kidneys improve, Renal consult and also the patient was given dexamethasone, colchicine for acute gout flareup, and codeine for pain . SHEREEN improving. Creat 1.4. IV fluids.Renal sono pending Hypokalemia improving. She is scheduled for left TKA at [facility] on Friday. If stable, discharge tomorrow. Plan Plan of Care Problems Medical Problems: (1) SHEREEN (acute kidney injury) Status: Acute (2) Gout attack Status: Acute (3) Unable to ambulate Status: Acute Comment Review of Relevant I have reviewed the following items stew (where applicable) has been applied. Labs Laboratory Tests Test 01/21/22 04:30 Sodium Level 144 mmol/L (136-145) Potassium Level 3.6 mmol/L (3.5-5.1) Chloride Level 112 mmol/L (98-107) Carbon Dioxide Level 23 mmol/L (21-32) Anion Gap 9 (6-14) Blood Urea Nitrogen 21 mg/dL (7-20) Creatinine 1.0 mg/dL (0.6-1.0) Estimated GFR (Cockcroft-Gault) 67.8 Glucose Level 93 mg/dL (70-99) Calcium Level 8.7 mg/dL (8.5-10.1) Medications Current Medications Prednisone (Prednisone) 30 mg 1X ONCE PO Last administered on 01/21/22at 08:14; Start 01/21/22 at 09:00; Stop 01/21/22 at 09:01; Status DC Vitals/I & O Vital Sign - Last 24 Hours 01/20/22 01/20/22 01/20/22 01/20/22 11:00 15:00 19:00 20:00 Temp 98.1 97.1 98.4 98.1 97.1 98.4 Pulse 89 90 85 Resp 16 16 14 B/P (MAP) 153/99 (117) 163/90 (114) 148/91 (110) Pulse Ox 96 98 97 O2 Delivery Room Air Room Air Room Air Room Air 01/20/22 01/21/22 01/21/22 01/21/22 23:00 03:00 07:00 08:15 Temp 98.2 98.1 97.4 98.2 98.1 97.4 Pulse 79 66 82 82 Resp 14 14 14 B/P (MAP) 148/93 (111) 133/81 (98) 143/87 (105) 143/87 Pulse Ox 96 95 98 O2 Delivery Room Air Room Air Room Air Intake and Output 01/20/22 01/20/22 01/21/22 15:00 23:00 07:00 Intake Total 550 ml 300 ml 500 ml Balance 550 ml 300 ml 500 ml Justifications for Admission Other Justification LISA ANDERSEN MD January 21, 2022 09:17
--- NOTE | 2022-01-21 10:50 | NUR ---
reviewed orally discharge instructions regarding medications and follow up. questions answered. awaiting granddaughter.
[2022-01-21 11:00] VITALS: BP 145/109
--- NOTE | 2022-01-21 12:50 | NUR ---
reviewed written discharge instructions with Steff. awaiting granddaughter.all questions answered
--- NOTE | 2022-01-21 22:19 | PDOC ---
Provider Note Date of Service: DATE: 01/21/22 TIME: 22:18 Provider Note Discharge summary dictated.#[id number] Justifications for Admission Other Justification LISA ANDERSEN MD January 21, 2022 22:19
--- NOTE | 2022-01-21 22:39 | DS ---
DATE OF DISCHARGE: 01/21/2022 REASON FOR ADMISSION TO THE HOSPITAL: 1. Acute gout attack. 2. Acute kidney failure. CONSULTATIONS: Dr. Gusman. PROCEDURES DONE: Ultrasound of the kidneys. HOSPITAL COURSE: The patient is a 61-year-old female patient recently out of town, came back and ate a lot of fatty food as well as red meat and then 2 days later noticed severe pain in the left foot, not able to ambulate, came to the Emergency Room, was found to have acute gout to the left foot and ankle. Uric acid was high at 10. The patient has hypertension, but her kidney function was 2.3 this time, which was high. The patient does not have any kidney failure. The patient is on Dyazide for blood pressure and amlodipine. The patient was stopped on Dyazide, given IV fluids and kidney function came back to less than 1 with hydration. The patient had a ultrasound of the kidneys, was negative for abnormality. Sed rate was 60. Potassium was low at 3.2 was replaced. Creatinine was 2.0, came down to 1 and had an x-ray negative for fracture. Doppler negative for DVT and uric acid was high at 10, was given prednisone and colchicine for gout attacks. The patient's condition improved. The patient was feeling well, was discharged home. It was decided not to renew Dyazide because of kidney failure as well as uric acid and first episode of gout would recommend follow up closely. We will check uric acid outpatient. FINAL DIAGNOSES: 1. Acute gout attack. 2. Acute kidney failure, improved with hydration and stopping Dyazide. 3. Hypertension. 4. Obesity. DISPOSITION: Home. See [facility] for discharge medications. JUAN DR: NASIMA/enoch TID: [id number]
== END 2022-01-21 13:00 | disposition home or self-care (01) | DRG 553 ==
LOC: ER 22:27 → ED HOLD 01-19 01:12 → 4 NORTH 01-19 07:25
PROVIDERS: ADMIT Internal Medicine; ATTEND Internal Medicine
DX: M10.9 Gout, unspecified (principal); N17.0 Acute kidney failure with tubular necrosis; M17.10 Unilateral primary osteoarthritis, unspecified knee; E66.9 Obesity, unspecified; I10 Essential (primary) hypertension; Z82.49 Family history of ischemic heart disease and other diseases of the circulatory system; Z83.3 Family history of diabetes mellitus; Z68.39 Body mass index [BMI] 39.0-39.9, adult
CPT/HCPCS: 36415; 73610; 73630; 76770; 80048; 80053; 81001; 83735; 83880; 84550; 85025; 85651; 86140; 93971; 96361; 96374; J1100; J7030; J7512; 97110-GP; 99285-25; G0378